=== PATIENT | male | born 1980 | race Caucasian/White ===

== ENCOUNTER 2019-06-22 04:03 | Emergency (ER) | payer MEDICAID ==
[~2019-06-22] VITALS: Ht 188 cm; Wt 99.8 kg
--- NOTE | 2019-06-22 04:36 | NUR ---
pt resting on gurney, monitors applied, siderail sup x2, call light within reach. pa at pt's bedside for eval
[2019-06-22] MEDS ORDERED: CLOB59LO2 TP (04:38)
[2019-06-22] MEDS ORDERED: TERB25PO TP (04:38)
[2019-06-22] MEDS ORDERED: LORazepam 2 MG/ML, 1ML ONE (04:58)
[2019-06-22] MEDS ORDERED: ASPIRIN 81 MG TABLET CHEW ONE (04:58)
[2019-06-22] MEDS ORDERED: ONDANSETRON 2MG/ML, 2ML ONE (04:58)
[2019-06-22] MEDS ORDERED: LORazepam 2 MG/ML, 1ML IVPush ONE (05:00)
[2019-06-22] MEDS ORDERED: SODIUM CHLORIDE 0.9% 1,000ML IVBOLUS ONE (05:00)
[2019-06-22] MEDS ORDERED: ASPIRIN 81 MG TABLET CHEW PO ONE (05:00)
[2019-06-22] MEDS ORDERED: ONDANSETRON 2MG/ML, 2ML IVPush ONE (05:00)
[2019-06-22 05:06] LABS: BASOPHILS # (AUTO) 0.07 x10^3/uL (0-0.1); BASOPHILS % (AUTO) 1 % (0-1); EOSINOPHILS # (AUTO) 0.04 x10^3/uL (0-0.4); EOSINOPHILS % (AUTO) 1 % (1-7); LYMPHOCYTES % (AUTO) 20 % (22-44); MD NO; MEAN CORPUSCULAR HEMOGLOBIN 32.3 pg (27.5-34.5); MEAN CORPUSCULAR HGB CONC 34.6 g/dL (33.2-36.2); MEAN CORPUSCULAR VOLUME 93.5 fL (81-97); MEAN PLATELET VOLUME 9.3 fL (7.4-10.4); MONOCYTES % (AUTO) 7 % (2-9); NEUTROPHILS # (AUTO) 6.28 x10^3/uL (1.8-6.8); NEUTROPHILS % (AUTO) 72 % (42-75); PLATELET COUNT 254 x10^3/uL (130-400); RED BLOOD COUNT 4.81 x10^6/uL (4.38-5.82); RED CELL DISTRIBUTION WIDTH 14.1 % (9.4-14.8)
--- NOTE | 2019-06-22 05:06 | NUR ---
IV SITE STARTED, LABS DRAWN. PT MEDICATED PER MAR, IV FLUIDS INFUSING. AWAITING LAB AND XRAY RESULTS
[2019-06-22 05:13] LABS: ALBUMIN 4.6 g/dL (3.4-5.0); ANION GAP 11 mmol/L (5-15); CALCIUM 9.3 mg/dL (8.5-10.1); CHLORIDE 103 mmol/L (98-107)
[2019-06-22 05:18] LABS: ALANINE AMINOTRANSFERASE 95 U/L (12-78); ALKALINE PHOSPHATASE 96 U/L (45-117); BILIRUBIN,TOTAL 0.6 mg/dL (0.2-1.0); CREATININE 1.09 mg/dL (0.7-1.3); TOTAL PROTEIN 8.1 g/dL (6.4-8.2); TROPONIN I < 0.015 ng/mL (0.000-0.045)
[2019-06-22 05:26] VITALS: BP 156/101
--- NOTE | 2019-06-22 05:27 | NUR ---
PT RESTING ON GURDRY RIDGE, MONITORS IN PLACE, CALL LIGHT WITHIN REACH. AWAITING XRAY RESULT
== END 2019-06-22 06:22 | disposition home or self-care (01) ==
LOC: ED 04:42
DX: F41.1 Generalized anxiety disorder (principal); F10.239 Alcohol dependence with withdrawal, unspecified; R11.2 Nausea with vomiting, unspecified; R42 Dizziness and giddiness; R07.2 Precordial pain; I10 Essential (primary) hypertension; Y90.0 Blood alcohol level of less than 20 mg/100 ml; Z72.9 Problem related to lifestyle, unspecified
CPT/HCPCS: 36415; 71045; 80053; 80307; 83690; 83880; 84484; 85025; 93005; 96361; 96374; 96375; 99285; J2060; J2405; J7030

== ENCOUNTER 2019-09-04 00:06 | Emergency (ER) | payer MEDICAID ==
[~2019-09-04] VITALS: Ht 188 cm; Wt 95.4 kg
[~2019-09-04 00:06] MED LIST: CLOB59LO2 TP; TERB25PO TP
[2019-09-04 00:08] VITALS: BP 163/107
[2019-09-04] MEDS ORDERED: IBUPROFEN 600 MG TABLET PO ONE (00:30)
[2019-09-04] MEDS ORDERED: IBUPROFEN 600 MG TABLET ONE (00:38)
== END 2019-09-04 02:00 | disposition home or self-care (01) ==
LOC: ED 01:05
DX: S80.211A Abrasion, right knee, initial encounter (principal); G89.11 Acute pain due to trauma; F41.1 Generalized anxiety disorder; I10 Essential (primary) hypertension; W19.XXXA Unspecified fall, initial encounter; Y93.89 Activity, other specified; Y92.098 Other place in other non-institutional residence as the place of occurrence of the external cause; Y99.8 Other external cause status
CPT/HCPCS: 99283

== ENCOUNTER 2019-11-10 06:40 | Emergency (ER) | payer MEDICAID ==
[~2019-11-10] VITALS: Ht 188 cm; Wt 92.9 kg
[2019-11-10] MEDS ORDERED: LORazepam 1MG TABLET PO ONE (07:00)
[2019-11-10] MEDS ORDERED: LORazepam 1MG TABLET ONE (07:06)
--- NOTE | 2019-11-10 07:57 | NUR ---
URINE SENT TO LAB
--- NOTE | 2019-11-10 07:57 | NUR ---
PT HAS HX OF ANXIETY AND IS FEELING ANXIOUS TODAY AND HAS A C/O BURNING URINATION
[2019-11-10 08:05] LABS: MICROSCOPIC NOT IND
[2019-11-10 09:10] VITALS: BP 130/90
== END 2019-11-10 09:17 | disposition home or self-care (01) ==
LOC: ED 08:57
DX: F41.1 Generalized anxiety disorder (principal); R30.0 Dysuria; I10 Essential (primary) hypertension
CPT/HCPCS: 81003; 82962; 99283

== ENCOUNTER 2019-12-27 21:54 | Emergency (ER) | payer MEDICAID ==
[~2019-12-27] VITALS: Ht 188 cm; Wt 89.9 kg
[2019-12-27 22:05] VITALS: BP 127/82
--- NOTE | 2019-12-27 22:14 | NUR ---
WANTS HIS GUMS CHECKED OUT. PT IN NAD, DEFER TO ERP FOR EVALUATION.
--- NOTE | 2019-12-27 22:37 | NUR ---
DC AMBULATORY IN NAD, PT VERBALIZES UNDERSTANDING OF INSTRUCT AND FU. TO RETURN TO ER IF WORSE OR CONERNS.
== END 2019-12-27 22:50 | disposition home or self-care (01) ==
LOC: ED 22:15
DX: K02.9 Dental caries, unspecified (principal); I10 Essential (primary) hypertension
CPT/HCPCS: 99283

== ENCOUNTER 2020-01-23 21:27 | Emergency (ER) | payer MEDICAID ==
[~2020-01-23] VITALS: Ht 188 cm; Wt 93.1 kg
[2020-01-23 21:29] VITALS: BP 154/105
== END 2020-01-23 22:53 | disposition left against medical advice (07) ==
LOC: ED 21:57
DX: R30.0 Dysuria (principal)
CPT/HCPCS: 99281

== ENCOUNTER 2020-01-26 21:55 | Emergency (ER) | payer MEDICAID ==
[~2020-01-26] VITALS: Ht 188 cm; Wt 95.0 kg
[2020-01-26 21:57] VITALS: BP 159/104
== END 2020-01-26 23:01 | disposition home or self-care (01) ==
LOC: ED 22:15
DX: L50.1 Idiopathic urticaria (principal)
CPT/HCPCS: 99282